=== PATIENT | male | born 1980 | race Caucasian/White ===

== ENCOUNTER 2023-07-12 07:51 | Emergency (ER) | payer MEDICAID, SELFPAY ==
[2023-07-12 07:57] VITALS: BP 141/88; PULSE 67; RESP 20; TEMP 36.6; O2SAT 97; BMI 26.5
[2023-07-12 08:02] VITALS: O2SAT 98
--- NOTE | 2023-07-12 08:24 | ED.GENADUL1 ---
HPI - General Adult General Chief complaint: Nausea/Vomiting/Diarrhea Stated complaint: DIARRHEA Time Seen by Provider: 07/12/23 08:17 Source: patient Mode of arrival: walk-in Limitations: no limitations History of Present Illness HPI narrative: The patient presenting to us 1 day history of nausea and diarrhea that started after he ate some cookies that he thinks maybe a rat was in the box. The patient have no fever chills or any other complaints no abdominal pain except for some cramping sometimes before the diarrhea The main concern of the patient was that he have a to go to work and he has been going to the bathroom frequently for loose stools There was no blood in stool no mucus Related Data Previous Rx's Medication Instructions Recorded ondansetron 4 mg disintegrating 4 mg PO Q8H PRN nausea and 07/12/23 tablet vomiting 24 hours #3 tabs Allergies Allergy/AdvReac Type Severity Reaction Status Date / Time No Known Drug Allergies Allergy Verified 07/12/23 08:00 Review of Systems ROS Status of ROS 10 or more systems reviewed and unremarkable except as noted in history and below [facility] Medical History (Updated 07/12/23 @ 08:24 by Kaya Engle MD) Surgical History (Updated 07/12/23 @ 08:01 by Beka Cavazos) Exam Narrative Exam Narrative: Nurses notes and vital signs reviewed and patient is not hypoxic. General: Well-appearing and in no apparent distress. Skin: Warm, dry, no pallor noted. No rash. Head: Normocephalic, atraumatic. Neck: Supple, non-tender. Eye: Pupils are equal, round and EOMI. No scleral icterus. Ears, Nose, Mouth, and Throat: TM are clear, no nasal mucosal hypertrophy. Oral mucosa is moist, no posterior oropharynx erythema, uvula is mid-line Cardiovascular: Regular Rate and Rhythm without murmur, gallop or rub. Respiratory: No accessory muscle use or respiratory distress. Lungs are clear to auscultation, no wheezing, rales or rhonchi Chest Wall: no tenderness Back: No midline thoracic or lumbar vertebral tenderness. No CVA tenderness Musculoskeletal: normal ROM, no calf or popliteal tenderness, no lower extremity edema/swelling GI: Abdomen is soft, non-distended. Normal bowel sounds. No masses appreciated. No tenderness to palpation. No rebound, guarding, or rigidity noted. Neurological: A&O x4. No cranial nerve dysfunction observed. No truncal ataxia. Moves all extremities. Sensation intact. Psychiatric: Cooperative and interactive. Normal mood and affect. Constitutional Vital Signs, click to edit/add: Last Vital Signs Temp 98 F 07/12/23 07:57 Pulse 67 07/12/23 07:57 Resp 20 07/12/23 07:57 BP 141/88 07/12/23 07:57 Pulse Ox 98 07/12/23 08:02 O2 Del Method Room Air 07/12/23 08:02 Course Vital Signs Vital signs: Vital Signs Temperature 98 F 07/12/23 07:57 Pulse Rate 67 07/12/23 07:57 Respiratory Rate 20 07/12/23 07:57 Blood Pressure 141/88 07/12/23 07:57 Pulse Oximetry 97 07/12/23 07:57 Oxygen Delivery Method Room Air 07/12/23 07:57 Temperature 98 F 07/12/23 07:57 Pulse Rate 67 07/12/23 07:57 Respiratory Rate 20 07/12/23 07:57 Blood Pressure 141/88 07/12/23 07:57 Pulse Oximetry 98 07/12/23 08:02 Oxygen Delivery Method Room Air 07/12/23 08:02 Medical Decision Making MDM Narrative Medical decision making narrative: The patient presenting with a mild gastroenteritis symptoms he was treated in the ER with Zofran instructed to hydrate well and given a work excuse Patient to come back in case of any increase in his symptoms or any blood in stool or fever The patient is to follow up with primary care physician in next 2-3 days or to return to the emergency department should any of the signs or symptoms worsen or new symptoms develop. The patient agrees with the following Diagnosis and Treatment plan and the patient will be discharged home. Discharge Plan Discharge Chief Complaint: Nausea/Vomiting/Diarrhea Clinical Impression: Gastroenteritis Patient Disposition: Home, Self-Care Time of Disposition Decision: 08:24 Prescriptions / Home Meds: New ondansetron 4 mg tablet,disintegrating 4 mg PO Q8H PRN (Reason: nausea and vomiting) 1 Days Qty: 3 0RF Instructions: Gastroenteritis (ED) Stand Alone Forms: Portal Instructions Referrals: Physician,Non-Staff, MD [Primary Care Provider] - 1 week
[2023-07-12] MEDS: ONDANSETRON 4 MG RAPDIS TABLET SL (08:32)
== END 2023-07-12 08:34 | disposition home or self-care (01) ==
PROVIDERS: Emergency Provider Emergency Medicine
DX: K52.9 Noninfective gastroenteritis and colitis, unspecified (principal)
CPT/HCPCS: 80053; 83690; 99283

== ENCOUNTER 2023-07-22 07:26 | Emergency (ER) | payer MEDICAID, SELFPAY ==
[2023-07-22 07:29] VITALS: PULSE 52; RESP 20; TEMP 36.4; O2SAT 97; BMI 26.5
[2023-07-22 07:32] VITALS: BP 154/70
[2023-07-22 08:23] LABS: Bilirubin Urine NEGATIVE (NEGATIVE); Blood Urine NEGATIVE (NEGATIVE); Clarity Urine CLEAR (CLEAR); Color Urine YELLOW (YELLOW); Glucose Urine UA NEGATIVE (NEGATIVE); Ketones Urine NEGATIVE (NEGATIVE); Leukocyte Esterase Urine NEGATIVE (NEGATIVE); Nitrite Urine NEGATIVE (NEGATIVE); Protein Urine NEGATIVE (NEG/TRACE); Urobilinogen Urine 0.2 EU/dL (0.2-1.0); pH Urine 5.5 (5.0-9.0)
[2023-07-22 08:24] LABS: Urine Microscopic Indicated NO
--- NOTE | 2023-07-22 09:10 | ED.BACK1 ---
HPI - Back Pain/Injury General Chief Complaint: Back Pain/Injury Stated Complaint: LOWER BACK PAIN Time Seen by Provider: 07/22/23 07:39 Source: patient Mode of arrival: walk-in History of Present Illness HPI Narrative: The patient is coming to us with 4 days history of back pain he did mention that he carries heavy objects at work but he also mentioned having some testicular pain on and off he also mentioned that he is at risk for STD as he does not use protection The patient denies any fever chills burning with urination or any frequency and he did not specify where the testicular pain is The back pain is in both sides and usually it comes with movement Related Data Previous Rx's Medication Instructions Recorded ondansetron 4 mg disintegrating 4 mg PO Q8H PRN nausea and 07/12/23 tablet vomiting 24 hours #3 tabs diclofenac sodium 50 mg 50 mg PO Q12H PRN pain #10 tabs 07/22/23 tablet,delayed release doxycycline hyclate 100 mg capsule 100 mg PO BID 7 days #14 caps 07/22/23 Allergies Allergy/AdvReac Type Severity Reaction Status Date / Time No Known Drug Allergies Allergy Verified 07/12/23 08:00 Review of Systems ROS Status of ROS 10 or more systems reviewed and unremarkable except as noted in history and below [facility] Medical History (Updated 07/22/23 @ 09:14 by Kaya Engle MD) Surgical History (Updated 07/12/23 @ 08:01 by Beka Cavazos) Exam Narrative Exam Narrative: Nurses notes and vital signs reviewed and patient is not hypoxic. General: Well-appearing and in no apparent distress. Skin: Warm, dry, no pallor noted. No rash. Head: Normocephalic, atraumatic. Neck: Supple, non-tender. Eye: Pupils are equal, round and EOMI. No scleral icterus. Ears, Nose, Mouth, and Throat: TM are clear, no nasal mucosal hypertrophy. Oral mucosa is moist, no posterior oropharynx erythema, uvula is mid-line Cardiovascular: Regular Rate and Rhythm without murmur, gallop or rub. Respiratory: No accessory muscle use or respiratory distress. Lungs are clear to auscultation, no wheezing, rales or rhonchi Chest Wall: no tenderness Back: No midline thoracic or lumbar vertebral tenderness. No CVA tenderness Musculoskeletal: normal ROM, no calf or popliteal tenderness, no lower extremity edema/swelling GI: Abdomen is soft, non-distended. Normal bowel sounds. No masses appreciated. Testicular exam is showing no tenderness no swelling no skin changes No tenderness to palpation. No rebound, guarding, or rigidity noted. Neurological: A&O x4. No cranial nerve dysfunction observed. No truncal ataxia. Moves all extremities. Sensation intact. Psychiatric: Cooperative and interactive. Normal mood and affect. Constitutional Vital Signs, click to edit/add: Last Vital Signs Temp 97.6 F 07/22/23 07:29 Pulse 52 L 07/22/23 07:29 Resp 20 07/22/23 07:29 BP 154/70 H 07/22/23 07:32 Pulse Ox 97 07/22/23 07:29 O2 Del Method Room Air 07/22/23 07:29 Course Vital Signs Vital signs: Vital Signs Temperature 97.6 F 07/22/23 07:29 Pulse Rate 52 L 07/22/23 07:29 Respiratory Rate 20 07/22/23 07:29 Pulse Oximetry 97 07/22/23 07:29 Oxygen Delivery Method Room Air 07/22/23 07:29 Temperature 97.6 F 07/22/23 07:29 Pulse Rate 52 L 07/22/23 07:29 Respiratory Rate 20 07/22/23 07:29 Blood Pressure 154/70 H 07/22/23 07:32 Pulse Oximetry 97 07/22/23 07:29 Oxygen Delivery Method Room Air 07/22/23 07:29 MDM - Back Pain/Injury MDM Narrative Medical decision making narrative: The patient examination was benign his urinalysis showed no UTI symptoms but with his history of being sexually active using a protection is at risk for STD the patient is covered with ceftriaxone and doxycycline for urethritis The patient back pain mostly secondary to muscular reason and he will be covered with NSAID The patient is to follow up with primary care physician in next 2-3 days or to return to the emergency department should any of the signs or symptoms worsen or new symptoms develop. The patient agrees with the following Diagnosis and Treatment plan and the patient will be discharged home. Lab Data Labs: Lab Results 07/22/23 Range/Units 07:44 Urine Color Yellow (YELLOW) Urine Clarity Clear (CLEAR) Urine pH 5.5 (5.0-9.0) Ur Specific [place] 1.020 (1.005-1.025) Urine Protein Negative (NEG/TRACE) mg/dL Urine Glucose (UA) Negative (NEGATIVE) mg/dL Urine Ketones Negative (NEGATIVE) mg/dL Urine Occult Blood Negative (NEGATIVE) Urine Nitrite Negative (NEGATIVE) Urine Bilirubin Negative (NEGATIVE) Urine Urobilinogen 0.2 (0.2-1.0) EU/dL Ur Leukocyte Esterase Negative (NEGATIVE) Discharge Plan Discharge Chief Complaint: Back Pain/Injury Clinical Impression: Back pain, Urethritis Patient Disposition: Home, Self-Care Time of Disposition Decision: 09:12 Prescriptions / Home Meds: New diclofenac sodium 50 mg tablet,delayed release (DR/EC) 50 mg PO Q12H PRN (Reason: pain) Qty: 10 0RF doxycycline hyclate 100 mg capsule 100 mg PO BID 7 Days Qty: 14 0RF No Action ondansetron 4 mg tablet,disintegrating 4 mg PO Q8H PRN (Reason: nausea and vomiting) 1 Days Qty: 3 0RF Instructions: Nonspecific Urethritis in Men (ED), Back Pain (ED) Stand Alone Forms: Portal Instructions Referrals: Physician,Non-Staff, MD [Primary Care Provider] - 1 week
[2023-07-22] MEDS: CEFTRIAXONE 500 MG VIAL IM (09:21)
[2023-07-22] MEDS: NAPROXEN 250 MG TABLET 500 MG PO (09:21)
[2023-07-22 09:27] VITALS: BP 126/77; PULSE 58; RESP 16; O2SAT 98
== END 2023-07-22 09:29 | disposition home or self-care (01) ==
PROVIDERS: Emergency Provider Emergency Medicine
DX: M54.50 Low back pain, unspecified (principal); N34.2 Other urethritis
CPT/HCPCS: 81003; 96372; 99284

== ENCOUNTER 2024-04-10 19:00 | Emergency (ER) | payer MEDICAID, SELFPAY ==
[2024-04-10 19:06] VITALS: BP 128/82; PULSE 83; TEMP 36.9; O2SAT 98; BMI 25.8
--- NOTE | 2024-04-10 19:28 | XR_ITS ---
The [address] [address] Patient Name: LIAM RIOS MRN: [id number] date: 1980 Sex: M Assigned Patient Location: ER Current Patient Location: Accession/Order Number: [id number] Exam Date: 04/10/2024 20:10 Report Date: 04/10/2024 21:39 At the request of: AMITA BANDA Procedure: XR shoulder LT min 2V EXAMINATION: XR shoulder LT min 2V, , 04/10/2024 8:10 PM EDT INDICATION: left shoulder pain HISTORY: Ordering Provider Reason for Exam: left shoulder pain Technologist Note: Additional: COMPARISON: None. TECHNIQUE: Left shoulder x-ray: 3 view(s). FINDINGS: No acute fracture. Glenohumeral and acromioclavicular joints are anatomically aligned. Joint spaces are preserved. Soft tissues are unremarkable. XR/XR shoulder LT min 2V IMPRESSION: No acute fracture or traumatic malalignment. Electronically authenticated by: ARIANNA MALDONADO Date: 04/10/2024 21:39
--- NOTE | 2024-04-10 20:47 | ED_ITS ---
HPI HPI - General Adult General Chief complaint: Extremity Problem, Nontraumatic Stated complaint: Upper Extremity Injury Time Seen by Provider: 04/10/24 19:12 Source: patient Mode of arrival: walk-in Limitations: no limitations History of Present Illness HPI narrative: Patient is a 44-year-old male who presents to the emergency department for the evaluation of left shoulder pain. He reports most of his pain over the left anterior shoulder, just inferior to the clavicle. He states he had an injury a year ago where he was scaling a ladder fell, he states he steadied himself by holding on with his left hand which was pulled forcefully when he fell. He was never evaluated after that injury 1 year ago and states that the shoulder hurt for 5 to 7 days and then felt better. He states in the last several days he has had increasing pain, worse with movement. No new injuries or falls. No medications taken prior to arrival. Related Data Previous Rx's ?Medication ?Instructions ?Recorded ketorolac 10 mg tablet 10 mg PO TID PRN pain #10 tabs 04/10/24 methocarbamol 750 mg tablet 750 mg PO TID PRN pain #20 tabs 04/10/24 methylprednisolone 4 mg tablets in See Rx Instructions .Route 04/10/24 a dose pack (Medrol (Brian)) .COMPLEX #21 ea Allergies Allergy/AdvReac Type Severity Reaction Status Date / Time No Known Drug Allergies Allergy Verified 04/10/24 19:09 Opioid HPI Opioid Management Most Recent Opioid Data: Last Pain Scale 5 07/22/23 07:54 Review of Systems ROS Constitutional Denies: fever or chills Ears, nose, mouth, and throat Denies: throat pain or nasal congestion Respiratory Denies: shortness of breath Gastrointestinal Denies: nausea or vomiting Musculoskeletal Reports: extremity pain, extremity swelling, joint pain and limited range of motion; Denies: back pain or neck pain Integumentary/Breast Denies: rash Neurological Denies: headache Hematologic/Lymphatic Denies: easy bruising or easy bleeding [facility] Medical History (Updated 04/10/24 @ 20:42 by RICKY Bentley) No pertinent past medical history ?Z78.9 - Other specified health status (ICD-10) Surgical History (Updated 07/12/23 @ 08:01 by Beka Cavazos) No pertinent past surgical history ?Z78.9 - Other specified health status (ICD-10) Exam Narrative Exam Narrative: Gen.: Awake, alert, in no distress Head: Normocephalic, atraumatic ENT: Moist mucous membranes Respiratory: No respiratory distress Extremities: Pain with abduction of the left shoulder, no bony point tenderness or obvious deformity. No sulcus sign. No posterior scapular tenderness. No bony tenderness of the left proximal humerus. 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 Psych: Normal mood and affect Neuro: No focal neuro deficit Skin: Warm, dry, intact Constitutional Vital Signs, click to edit/add: Last Vital Signs Temp 98.4 F 04/10/24 19:06 Pulse 83 04/10/24 19:06 Resp 18 04/10/24 19:06 BP 128/82 04/10/24 19:06 Pulse Ox 98 04/10/24 19:06 O2 Del Method Room Air 04/10/24 19:06 Course Vital Signs Vital signs: Vital Signs Temperature 98.4 F 04/10/24 19:06 Pulse Rate 83 04/10/24 19:06 Respiratory Rate 18 04/10/24 19:06 Blood Pressure 128/82 04/10/24 19:06 Pulse Oximetry 98 04/10/24 19:06 Oxygen Delivery Method Room Air 04/10/24 19:06 Temperature 98.4 F 04/10/24 19:06 Pulse Rate 83 04/10/24 19:06 Respiratory Rate 18 04/10/24 19:06 Blood Pressure 128/82 04/10/24 19:06 Pulse Oximetry 98 04/10/24 19:06 Oxygen Delivery Method Room Air 04/10/24 19:06 Medical Decision Making MDM Narrative Medical decision making narrative: X-rays of the left shoulder are unremarkable with no evidence of fracture or dislocation. Patient was given a sling as needed for comfort for the next several days although he was strongly encouraged to take the sling off to prevent frozen shoulder with gentle movements. He is neurovascularly intact at discharge. He is sent home with a short course of NSAIDs, muscle relaxants and steroids to follow-up with orthopedics. Return to the ER if symptoms change or worsen. Medical Records Medical records reviewed: Yes I reviewed the patient's medical records Imaging Data XR shoulder: Attestation: I have reviewed the pertinent imaging results. Radiologist's impression: ITS Impressions Shoulder X-Ray 04/10/24 19:28 IMPRESSION: No acute fracture or traumatic malalignment. Electronically authenticated by: ARIANNA YEPEZPETE Date: 04/10/2024 21:39 Discharge Plan Discharge Stand Alone Forms: Portal Instructions Chief Complaint: Extremity Problem, Nontraumatic Clinical Impression: Acute pain of left shoulder Patient Disposition: Home, Self-Care Time of Disposition Decision: 20:42 Condition: Good Prescriptions / Home Meds: New ketorolac 10 mg tablet 10 mg PO TID PRN (Reason: pain) Qty: 10 0RF methocarbamol 750 mg tablet 750 mg PO TID PRN (Reason: pain) Qty: 20 0RF methylprednisolone [Medrol (Brian)] 4 mg tablets,dose pack See Rx Instructions .ROUTE .COMPLEX Qty: 21 0RF Rx Instructions: Taper as directed Print Language: Lithuanian Instructions: Shoulder Pain (ED) Additional Instructions: Sling for 3 days only, to be used only when up and moving for comfort; Rest and gently stretch the shoulder Dr. Nunn will see you in the [place] office at 1030am, or you can call the [place] office at [phone] to see if there are sooner appointments in that office Referrals: Physician,Non-Staff, [Primary Care Provider] - 1 week Augustin Nunn MD [Physician] - 04/24/24 10:30 am Discharge Date/Time: 04/10/24 21:13
[2024-04-10] MEDS: HYDROCODONE/ACET 5-325 MG TABLET 1 TAB PO (21:00)
[2024-04-10] MEDS: METHOCARBAMOL 500 MG TABLET 750 MG PO (21:00)
[2024-04-10] MEDS: PREDNISONE 20 MG TABLET 60 MG PO (21:00)
[2024-04-10] MEDS: KETOROLAC TROMETHAMINE 10 MG TABLET PO (21:01)
== END 2024-04-10 21:13 | disposition home or self-care (01) ==
PROVIDERS: Emergency Provider Internal Medicine
DX: M25.512 Pain in left shoulder (principal)
CPT/HCPCS: 73030; 99284